=== PATIENT | female | born 1970 | race African-American/Black ===

== ENCOUNTER 2017-05-01 00:54 | Emergency (ER) | payer MEDICAID ==
[~2017-05-01] VITALS: Ht 157.5 cm; Wt 81.6 kg
[2017-05-01 01:40] VITALS: BP 138/86
== END 2017-05-01 02:30 | disposition home or self-care (01) ==
LOC: ER 00:54
DX: H66.92 Otitis media, unspecified, left ear (principal); I10 Essential (primary) hypertension